=== PATIENT | female | born 1945 | race Native Hawaiian/Other Pacific Islander ===

== ENCOUNTER 2021-09-23 20:34 | Emergency (ER) | payer OTHER ==
[~2021-09-23] VITALS: Ht 162.6 cm; Wt 86.2 kg
[2021-09-23 21:07] LABS: PLATELET COUNT 276 K/uL (152-353)
[2021-09-23 21:16] LABS: POTASSIUM 3.9 mmol/L (3.6-5.2)
[2021-09-23 23:42] VITALS: BP 138/77; TEMP 98.2
[2021-09-24] MEDS ORDERED: ALBUTEROL0.63 MG/3 INH (03:29)
[2021-09-24] MEDS ORDERED: BUSPIRONE5 MG PO (03:30)
[2021-09-24] MEDS ORDERED: DIVALPROEX250 M1 PO (03:32)
[2021-09-24] MEDS ORDERED: LIPITOR40 MG PO (03:50)
[2021-09-24] MEDS ORDERED: MELATONIN5 M4 PO (03:50)
[2021-09-24] MEDS ORDERED: PANTOPRAZOLE 40MG TA PO (03:51)
[2021-09-24] MEDS ORDERED: PEPCID20 MG PO (03:51)
[2021-09-24] MEDS ORDERED: TYLENOL325 MG PO (03:52)
[2021-09-24] MEDS ORDERED: TRAZODONE HYDRO50 MG PO (03:52)
[2021-09-24] MEDS ORDERED: CVS SENNA8.6 MG PO ×2 (03:52→09:37)
[2021-09-24] MEDS ORDERED: APLISOL5 UNIT/0.1 ID (04:11)
[2021-09-24] MEDS ORDERED: SENOKOT8.6 MG PO (13:39)
[2021-09-24] MEDS ORDERED: SENNA-PLUS1 TAB PO ×3 (15:19→15:30)
== END 2021-09-23 23:42 | disposition still patient (30) ==
LOC: ED 20:34
PROVIDERS: Emergency Medicine
DX: F03.91 Unspecified dementia, unspecified severity, with behavioral disturbance (principal); Z11.52 Encounter for screening for COVID-19; Z04.6 Encounter for general psychiatric examination, requested by authority
CPT/HCPCS: 36415; 80053; 81000; 85027; 87635; 93005; 99283; U0003